=== PATIENT | female | born 1970 | race Caucasian/White ===

== ENCOUNTER 2017-06-29 18:33 | Emergency (ER) | payer BC ==
[~2017-06-29] VITALS: Ht 165.1 cm; Wt 119.5 kg
[~2017-06-29 18:33] MED LIST: NO HOME MEDICATIONS; PHENERGAN 25 TA25 MG PO
[2017-06-29 18:36] VITALS: BP 116/57; TEMP 97.7
[2017-06-29] MEDS ORDERED: FASTIN30 MG PO (18:47)
[2017-06-29] MEDS ORDERED: VOLTAREN 75 DR75 MG PO (18:47)
[2017-06-29] MEDS ORDERED: PERCOCET 325 MG1 TA2 PO (19:56)
[2017-06-29 20:29] VITALS: PULSE 82
== END 2017-06-29 20:31 | disposition home or self-care (01) ==
LOC: COL.ER 18:33
DX: S86.011A Strain of right Achilles tendon, initial encounter (principal); X50.0XXA Overexertion from strenuous movement or load, initial encounter; Y92.000 Kitchen of unspecified non-institutional (private) residence as the place of occurrence of the external cause
CPT/HCPCS: Q4045

== ENCOUNTER 2022-11-02 09:00 | Outpatient (RCR) | payer BC, OTHER ==
[~2022-11-02 09:00] MED LIST changes: +FASTIN30 MG PO; +FLEXERIL 1010 MG/TAB PO; +MIRALAX238G PO; +NORCO 325 MG-51 TAB PO; +PERCOCET 325 MG1 TA2 PO; +VOLTAREN 75 DR75 MG PO; +ZOFRAN ODT4 MG PO
== END 2022-11-04 | disposition home or self-care (01) ==
LOC: WSPT
DX: M51.36 Other intervertebral disc degeneration, lumbar region (principal)

== ENCOUNTER 2022-12-13 10:30 | Outpatient (RCR) | payer BC, OTHER ==
[2023-01-07] MEDS ORDERED: ULTRAM 50MG TAB50 MG PO (20:58)
[2023-01-07] MEDS ORDERED: ELIQUIS 5MG (20:59)
[2023-01-07] MEDS ORDERED: TOPROL XL 25MG25 MG (20:59)
[2023-01-07] MEDS ORDERED: COZAAR 25MG25 MG/TAB (20:59)
== END 2022-12-13 12:00 | disposition home or self-care (01) ==
LOC: WSPT 10:30
DX: M51.36 Other intervertebral disc degeneration, lumbar region (principal)